=== PATIENT | male | born 1960 | race Caucasian/White ===

== ENCOUNTER 2024-05-02 16:32 | Emergency (ER) | payer OTHER, SELFPAY ==
[2024-05-02 16:40] VITALS: BP 147/82; PULSE 93; RESP 18; TEMP 36.4; O2SAT 96; BMI 36.6
--- NOTE | 2024-05-02 19:42 | ED_ITS ---
HPI - Eye Problem General Time Seen by Provider: 19:43 Date Seen: 05/02/24 Chief complaint: Eye Problems Stated complaint: something stuck in eye Time Seen by Provider: 05/02/24 19:26 Source: patient and family Mode of arrival: ambulatory Limitations: no limitations History of Present Illness HPI Narrative: This 64-year-old male is coming in with irritation in his right eye. He was working in his barn, has a dirt floor. He was wearing safety glasses but did not have sides on them. He does not wear contacts. He notes that he felt something go into his right eye, started to really hurt in bother him later. He rinsed his eye out with water and then showered. That did feel better. He continued to feel little irritation in his right upper inner quadrant. No visual disturbances. Eye has not been watering. He has had a history of [place] irritation from seasonal allergens, states about every 5 years he will have seasonal issues and will get prescription eyedrops. Otherwise uses no eyedrops ir no chronic eye issues. He is unsure of his tetanus status. Related Data Home Medications ?Medication ?Instructions ?Recorded ?Confirmed loratadine 10 mg tablet (Allergy 10 mg PO QDAY 12/01/23 05/02/24 Relief (loratadine)) Previous Rx's ?Medication ?Instructions ?Recorded azelastine 0.05 % eye drops 1 drp ophthalmic (eye) BID #6 mL 02/12/24 Allergies Allergy/AdvReac Type Severity Reaction Status Date / Time No Known Drug Allergies Allergy Verified 05/02/24 16:45 Review of Systems Narrative: As per HPI. PFSH PFSH Social History Smoking Status: Never smoker Exam Const: Vital Signs, click to edit/add: Vital Signs - 24 hr 05/02/24 16:40 Temperature 97.5 F L Pulse Rate [Right Pulse Oximeter] 93 Respiratory Rate 18 Blood Pressure [Ri ght Upper Arm] 147/82 H Pulse Oximetry 96 Oxygen Delivery Me thod Room Air This 64-year-old male is alert, interactive, no apparent distress. Pupils are equal round reactive, sclera clear, extraocular muscles intact. Note no visible retained foreign body on inspection with magnification. Patient was given 2 drops of tetracaine which did reportedly staying for him. He did get anesthesia after that. With fluorescein staining, there was no noted uptake. After did jesus patient's eyelid and saw a small dark piece of matter float down towards the right inner canthus. Was able to take a Q-tip and simply swab it out of that inner portion of his eye. Did revision alive eyes and there was no further retained objects. This did not appear or feel to be metallic, was softer. He had no visible uptake a boarder hand seen suggestive of any abrasion or irritation. Of note, patient did kindly asked me if I would look at his ears. He did just use debrox drops. Both of his ear canals are clear, can see down to normal tympanic membranes and he is advised of this. Documenting provider has reviewed patient's vital signs: yes Course Course ED Course: Nursing staff looked up tetanus status, up-to-date on 04/03 2023. Vital Signs Vital signs: Initial Vital Signs Temperature 97.5 F L 05/02/24 16:40 Temperature Source Temporal Artery Scan 05/02/24 16:40 Pulse Rate 93 05/02/24 16:40 Pulse Rhythm Regular 05/02/24 16:40 Respiratory Rate 18 05/02/24 16:40 Blood Pressure 147/82 H 05/02/24 16:40 Blood Pressure Mean 103 05/02/24 16:40 Blood Pressure Position Sitting 05/02/24 16:40 Pulse Oximetry 96 05/02/24 16:40 Oxygen Delivery Method Room Air 05/02/24 16:40 Vital Signs Temperature 97.5 F L 05/02/24 16:40 Pulse Rate 93 05/02/24 16:40 Respiratory Rate 18 05/02/24 16:40 Blood Pressure 147/82 H 05/02/24 16:40 Pulse Oximetry 96 05/02/24 16:40 Oxygen Delivery Method Room Air 05/02/24 16:40 Temperature 97.5 F L 05/02/24 16:40 Pulse Rate 93 05/02/24 16:40 Respiratory Rate 18 05/02/24 16:40 Blood Pressure 147/82 H 05/02/24 16:40 Pulse Oximetry 96 05/02/24 16:40 Oxygen Delivery Method Room Air 05/02/24 16:40 Discharge Plan Discharge Clinical Impression: Foreign body of external eye Qualifiers: Encounter type: initial encounter Laterality: right Qualified Code(s): T15.91XA - Foreign body on external eye, part unspecified, right eye, initial encounter Patient Disposition: Home, Self-Care Condition: Stable Instructions: Eye Foreign Body (ED) Additional Instructions: There did not seem to be any abrasion from this foreign body. Hopefully her symptoms will be resolved as this was removed. Can take some Tylenol tonight prior to bed. If he still noticed eye symptoms in the morning, would recommend follow-up with your eye doctor or [employer] officer. Prescriptions: No Action loratadine [Allergy Relief (loratadine)] 10 mg tablet 10 mg PO QDAY azelastine 0.05 % drops 1 drp ophthalmic (eye) BID Qty: 6 0RF Follow Up/Referrals: Daniel Claudio MD [Primary Care Provider] - Stand Alone Forms: [employer] Info Instructions
== END 2024-05-02 20:19 | disposition home or self-care (01) ==
LOC: ED 20:20
PROVIDERS: Emergency Provider Family Medicine; PCP Surgery
DX: T15.91XA Foreign body on external eye, part unspecified, right eye, initial encounter (principal)
CPT/HCPCS: 99282; A9270